=== PATIENT | female | born 1940 | race Caucasian/White ===

== ENCOUNTER 2021-07-05 11:19 | Emergency (ER) | payer MEDICARE, SELFPAY ==
--- NOTE | ~2021-07-05 | XR_ITS ---
XR shoulder RT min 2V, XR humerus RT 07/05/2021 12:32 Indication: Status post fall. Hematoma. Decreased range of motion. Procedure: 4 views right shoulder and 2 views right humerus Comparison: No prior studies for comparison. 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 Osteopenia. No acute fracture or traumatic malalignment. No focal soft tissue abnormality. Visualiz ed aspects of the right lung is unremarkable. Impression: 1: No acute fracture. Reviewed, dictated and finalized at location A. FARM OPERATIONS MANAGER Impression: 1: No acute fracture. Impression: 1: No acute fracture.
--- NOTE | ~2021-07-05 | XR_ITS ---
[id number] DATE: 07/05/2021 13:08 INDICATION: Fall. Upper anterior right rib pain TECHNIQUE: PA chest. 4 views of the right ribs. COMPARISON: None FINDINGS: Left dual-lead pacemaker device, with leads overlying right atrium and right ventricle. Status post right cholecystectomy; right upper abdomen fabian. There is diffuse osteopenia. No displaced right rib fracture is detected. Levoscoliosis and degenerative spurring of the thoracic and lumbar spine. There is osteoarthritic change of the right glenohumeral joint. There is chronic rotator cuff atrophy . No pulmonary infiltrate or consolidation, pleural effusion or pulmonary vascular congestion or pneumo thorax is evident. There is aortic atherosclerosis. IMPRESSION: No displaced right rib fractures noted Diffuse osteopenia No active pulmonary disease Reviewed, dictated and finalized at Location A. Reviewed, dictated and finalized at location B. CAL CLINIC MANAGER
[2021-07-05 11:24] VITALS: BP 154/64; PULSE 80; RESP 18; TEMP 36.1; O2SAT 98
--- NOTE | 2021-07-05 20:22 | ED.GENADULT ---
HPI - General Adult General Chief complaint: Extremity Injury, Upper Stated complaint: R. shoulder pain from fall. Time Seen by Provider: 07/05/21 12:23 Source: patient Mode of arrival: ambulatory Limitations: no limitations History of Present Illness HPI narrative: Patient presents with chief complaint of pain to the right shoulder when trying to do activities that cause her to supinate and pronate and gripping such as a cup. She reports shooting pains into that shoulder. Patient reports that she fell onto the shoulder 3 weeks ago. Patient states that she did not have any head injuries or other injuries. Patient reports she has bruising area. Patient states she has not had the shoulder evaluated. She reports that she injured the right shoulder many years ago. Related Data Home Medications Medication Instructions Recorded Confirmed cholecalciferol (vitamin D3) 10 10 mcg PO DAILY 12/27/19 04/08/21 mcg (400 unit) tablet vit C,E,zinc,copper-bfdjc7e 250 1 cap PO DAILY 10/09/20 04/08/21 mg-lutein 5 mg-zeaxanthin 1 mg capsule aspirin 81 mg tablet,delayed 81 mg PO DAILY 04/08/21 04/08/21 release amiodarone 07/05/21 clopidogrel 07/05/21 latanoprost drp 07/05/21 lisinopril 07/05/21 timolol maleate drp 07/05/21 Allergies Allergy/AdvReac Type Severity Reaction Status Date / Time morphine Allergy Unknown Vomiting Verified 04/08/21 12:09 Review of Systems Review of Systems: CONSTITUTIONAL: Denies fever, chills, or sweats. EYES: Denies visual changes, redness, or discharge. ENT: Denies rhinorrhea, congestion, sore throat, or otalgia. CARDIOVASCULAR: Denies chest pain, palpitations, or edema. RESPIRATORY: Denies cough or dyspnea. GASTROINTESTINAL: Denies abdominal pain, nausea, vomiting, or diarrhea. GENITOURINARY: Denies dysuria or hematuria. SKIN: Denies rash or itching. MUSCULOSKELETAL: Reports right shoulder pain denies back pain, joint pain, or myalgia. NEUROLOGIC: Denies headache, numbness, dizziness, or weakness. PSYCHIATRIC: Denies anxiety or depression. 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 Sleep apnea, obstructive Surgical History Surgical History AICD (automatic cardioverter/defibrillator) present History of appendectomy History of cholecystectomy History of partial hysterectomy Family History Family History Father Hypertension Family history of diabetes mellitus in first degree relative Family history of coronary artery disease Mother Family history of coronary artery disease, Onset Age: 68 Patient's mother is , Onset Age: 68 Other Family history of blood dyscrasia Family history of cardiovascular disease Social History Social History Second hand tobacco smoke exposure: No Alcohol intake: never Substance use: never Substance use type: does not use Gender identity (if verbalized by the patient): Female Exam Narrative: GENERAL: Well-appearing, well-nourished, and in no acute distress. HEAD: Normocephalic, atraumatic. EYES: PERRLA and EOMI. NECK: Supple. No adenopathy or masses. ROM intact CHEST: Clear to auscultation. No respiratory distress. No wheezes rales or rhonchi HEART: Regular rate and rhythm. EXTREMITIES: Right shoulder pain. 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 Shooting pain with right shoulder. Patient reports supination and pronation cause shooting pain and limits exam. Old Bruising noted to right upper arm. SKIN: Warm, dry, no rash. NEURO: No focal deficits. Alert and oriented x3. PSYCH: Normal mood and affect. Course Vital Signs V
== END 2021-07-05 14:15 | disposition home or self-care (01) ==
PROVIDERS: Emergency Provider Emergency Medicine; PCP Family Medicine
DX: M25.511 Pain in right shoulder (principal); I48.0 Paroxysmal atrial fibrillation; G47.33 Obstructive sleep apnea (adult) (pediatric); I34.0 Nonrheumatic mitral (valve) insufficiency; Z95.810 Presence of automatic (implantable) cardiac defibrillator; M85.88 Other specified disorders of bone density and structure, other site; Z79.82 Long term (current) use of aspirin
CPT/HCPCS: 71101; 73030; 73060; 99284; A4565

== ENCOUNTER 2023-12-05 10:15 | Outpatient (CLI) | payer MEDICARE, SELFPAY ==
--- NOTE | ~2023-12-05 | DEXA_ITS ---
Bone Density Report Name: TRACE HO Age: 83 Sex: Female Ethnicity: White Date of : 1940 Indication: postmenopausal; screening for osteoporosis; height loss; prior fracture; hysterectomy; rheumatoid arthritis; Referring Provider: CHETAN BAHENA Study: Bone densitometry was performed. Exam Date: December 05, 2023 Accession number: [id number] Bone Density: Region BMD T-score Z-score Classification AP Spine(L1-L4) 0.869 -1.6 1.2 Osteopenia World Health Organization criteria for BMD impression classify patients as: Normal (T-score at or above -1.0), Osteopenia (T-score between -1.0 and -2.5), or Osteoporosis (T-score at or below -2.5). Clinical Information Provided by Patient: Have had a previous hip or vertebral fracture Has had a low trauma fracture Has rheumatoid arthritis Has the following medical conditions: Hysterectomy Patient maximum height was 65.8 Menopause Age: 46 Drinks caffeinated beverages Onset of menses at age 11 Number of children 5 Impression: The patient has low bone mass, based on the Total Spine T-score. The patient has risk factors, including: previous fracture. Discussion: INCREASED RISK OF FRACTURE DUE TO HISTORY OF FRACTURE. The patient's previous fracture puts the patient at high risk of a future fracture. In untreated patients, the risk of osteoporotic fracture increases approximately two-fold for each 1.0 SD decrease in T-score. Low bone density is not the only risk factor for fracture; also consider factors such as patient's age, frailty or poor health, risk of falling, risk of injury, previous osteoporotic fracture, family history of osteoporosis, cigarette smoking, low body weight, etc. Not everyone with a low trauma fracture has osteoporosis; osteomalacia and other metabolic bone disorders should also be considered. Patients who have osteoporosis should be evaluated for specific diseases and conditions (secondary causes) that may cause or contribute to bone loss and fracture risk. National Osteoporosis Foundation (NOF) recommends pharmacologic intervention for patients with a prior hip or vertebral fracture regardless of BMD T-score. The patient should follow a healthful lifestyle (good nutrition with adequate calcium and vitamin D, and appropriate weight-bearing exercise). Follow-Up: Consider a repeat BMD and Vertebral Fracture Assessment (VFA) exam in 2 years or sooner if medically necessary, to reassess this patient's status. Reported by: MILA on 12/05/2023 10:44:00 AM. Reviewed, dictated and finalized at location Nirmal CONLEY
== END 2023-12-05 10:16 | disposition home or self-care (01) ==
PROVIDERS: PCP Family Medicine; Visit Provider Family Medicine
DX: Z78.0 Asymptomatic menopausal state (principal); M85.88 Other specified disorders of bone density and structure, other site
CPT/HCPCS: 77080

== ENCOUNTER 2024-04-23 10:53 | Outpatient (CLI) | payer MEDICARE, SELFPAY ==
--- NOTE | ~2024-04-23 | XR_ITS ---
Clinical Indication: Cough PA and lateral views of the chest: Comparison: 03/06/2006 Findings: The lungs are clear, without evidence of focal consolidation or pleural effusion. Cardiome diastinal silhouette is stable, now with pacemaker device. L1 compression fracture noted. Impression: Clear lungs. Possible COPD. L1 compression fracture. Pacemaker device. Reviewed, dictated and finalized at location . Impression: Clear lungs. Possible COPD. L1 compression fracture. Pacemaker device.
== END 2024-04-23 10:54 | disposition home or self-care (01) ==
PROVIDERS: PCP Family Medicine; Visit Provider Family Medicine
DX: R05.9 Cough, unspecified (principal); Z95.0 Presence of cardiac pacemaker; S32.010A Wedge compression fracture of first lumbar vertebra, initial encounter for closed fracture; X58.XXXA Exposure to other specified factors, initial encounter
CPT/HCPCS: 71046

== ENCOUNTER 2025-02-07 17:07 | Emergency (ER) | payer MEDICARE, SELFPAY ==
--- NOTE | ~2025-02-07 | CT_ITS ---
EXAMINATION: 1. CT facial & cervical spine wo DATE: 02/07/2025 17:52 INDICATION: Facial injury post fall TECHNIQUE: 1. Computed tomography (CT) of the maxillofacial region and of the cervical spine were performed with out intravenous contrast. Sagittal and coronal reconstructions of both regions were obtained. Automat ed exposure control and iterative reconstruction technique were employed. The dose-length product was 482.72. mGy-cm. COMPARISON: None. FINDINGS: Maxillofacial CT: No maxillofacial fractures. Specifically the mandible, nasal bones, zygomatic arches and caraballo of the orbits and paranasal sinuses are all intact. Changes of bilateral intraocular lens replacement. Orbi ts are otherwise normal. Mastoid air cells and middle ear cavities are clear. Mild scattered mucoperi osteal thickening the paranasal sinuses. Dystrophic calcification of the anteriorly displaced disc an d mild osteoarthritis at the left temporomandibular joint. Soft tissues are unremarkable. Cervical spine CT: Severe osteoarthritis at the atlantoaxial articulation. 25 degrees cervical dextroscoliosis. Straight ening of the normal cervical lordosis. There is C2-C4 posterior spinal fusion including cerclage wire s extending around the C3 and C4 spinous processes. There is developing anterior fusion along the mar gins of the moderately narrowed C2-C3 and C3-C4 disc spaces. Severe disc height loss with severe bila teral uncovertebral osteoarthritis at C5-C6 and moderate disc height loss at C6-C7 and mild disc heig ht loss at C4-C5 and C7-T1. There is mild to moderate uncovertebral osteoarthritis at the remaining l evels between C4-C5 and C7-T1. There is additional multilevel mild to moderate disc height loss at th e visualized upper thoracic spine. Posterior endplate osteophytes contribute to mild central canal st enosis at C5-C6 and C6-C7. Severe left-sided and mild to moderate right-sided facet osteoarthritis fr om C4-C5 through C7-T1. Mild to moderate neural foraminal stenosis bilaterally at C5-C6 with mild marichuy ral from stenosis at many of the remaining bilateral cervical neural foramina. Atherosclerotic calcif ication is at the bilateral carotid bulbs. Small left occipital scalp contusion. Cervical soft tissue s are otherwise unremarkable. Mild biapical pleural-parenchymal scarring. A pair of cardiac pacemaker leads extend across the left brachiocephalic vein and beyond the inferior margin of the ileqh-xj-olt w. IMPRESSION: 1. Severe cervical spondylosis with anterior and posterior fusion at C2-C4. No acute osseous abnormal ity. 2. No maxillofacial fractures. Reviewed, dictated and finalized at location A. IMPRESSION: 1. Severe cervical spondylosis with anterior and posterior fusion at C2-C4. No acute osseous abnormality. 2. No maxillofacial fractures.
--- NOTE | ~2025-02-07 | CT_ITS ---
EXAMINATION: CT brain wo con DATE: 02/07/2025 17:52 INDICATION: Fall with head injury TECHNIQUE: Computed tomography (CT) of the head was performed without intravenous contrast. Sagittal and coronal reconstructions were performed. The mA was adjusted according to patient size. Iterative reconstruction technique was employed. The dose-length product was 605.33 mGy-cm. COMPARISON: Brain MR dated 10/28/2008 FINDINGS: Small left occipital scalp hematoma. No fracture. No acute intracranial hemorrhage, acute infarction or abnormal extra axial fluid collection. Small old lacunar infarct at the right subinsular white mat ter. There is moderate scattered white matter hypoattenuation consistent with chronic small vessel is chemic disease. Symmetric prominence of the sulci consistent with mild age-appropriate diffuse cerebr al volume loss. Ventricles are normal and symmetric.. There are couple small calcified extra-axial ma sses the larger measuring 9 x 5 mm overlying the left frontoparietal region and the smaller measuring 4.3 overlying the anterior left frontal lobe consistent with meningiomas. Changes of bilateral intra ocular lens replacement. The orbits, paranasal sinuses and mastoid air cells are normal. IMPRESSION: 1. Aging brain. No fracture or acute intracranial process. 2. A couple small partially calcified extra-axial mass overlying the left frontal and left frontopari etal regions consistent with small meningiomas. Reviewed, dictated and finalized at location A. IMPRESSION: 1. Aging brain. No fracture or acute intracranial process. 2. A couple small partially calcified extra-axial mass overlying the left front al and left frontoparietal regions consistent with small meningiomas.
--- OUTSIDE RECORDS SUMMARY | 2025-02-07 17:09 | XMS_ITS | Referral Summary ---
Author Organization [facility] al Address [address] [place] [address] Care Team Providers Care Power Brake Rebuilder Name Role Phone Deena Abernathy MD Primary Care Provider [phone] Serafin Chacon MD Unavailable Duglas Valiente MD Unavailable [phone] Bong Jolly MD Unavailable Alaina Godinez MD, Tonny P. Unavailable [phone] Allergies Active Allergy Reactions Criticality Noted Date Comments Morphine Nausea & Vomiting Low Medications amiodarone (PACERONE) 200 mg tablet Take 1 tablet (200 mg total) by mouth daily Active latanoprost (XALATAN) 0.005 % ophthalmic solution 09/10/19 21 Active lisinopriL (PRINIVIL,ZESTRIL) 5 mg tablet Take 1 tablet (5 mg total) by mouth daily 09/10/19 21 Active timolol (TIMOPTIC) 0.5 % ophthalmic solution 12/16/19 21 Active lutein-zeaxanthin 25-5 mg capsule Take by mouth Active aspirin 81 mg enteric coated tablet Take 1 tablet (81 mg total) by mouth daily Active acetaminophen (TYLENOL) 325 mg tablet Take 2 tablets (650 mg total) by mouth every 6 (six) hours as needed for pain (1 tablet for mild to moderate pain. 2 tablets for severe pain) 50 tablet 05/09/20 23 Active Additional Information Patient not taking.Reported on 06/26/2024 docusate sodium (COLACE) 100 mg capsuleIndications :constipation Take 1 capsule (100 mg total) by mouth every 12 (twelve) hours 30 capsule 05/09/20 Active Additional Information Patient not taking.Reported on 06/26/2024 ondansetron ODT (ZOFRAN-ODT) 4 mg disintegrating tablet Take 1 tablet (4 mg total) by mouth every 8 (eight) hours as needed for nausea or vomiting 20 tablet 05/09/20 23 Active Additional Information Patient not taking.Reported on 12/04/2023 LORazepam (ATIVAN) 0.5 mg tablet Take 1 tablet (0.5 mg total) by mouth every 6 (six) hours as needed for anxiety Active vit C,P-Mt-nsevy-lutei n-zeaxan 250-90-40-1 mg capsule Take by mouth Active Active Problems Problem Noted Date Diagnosed Date Mitral regurgitation 11/29/2022 TBI (traumatic brain injury) 01/27/2020 Dizziness and giddiness 01/27/2020 Subdural hematoma 12/04/2019 Fracture of base of skull 12/04/2019 Syncope 12/04/2019 Longstanding persistent atrial fibrillation 11/15 Assessment & Plan (12/18/2020 2:27 PM CDT): History of atrial fibrillation, currently suppressed with amiodarone. To my knowledge to has been no recent documentation of atrial fibrillation, but it is likely to recur, particularly given her mitral valve disease. She is a suitable candidate for a Watchman device who given her chads Vasc and has bled scores, and she is likely to tolerate anticoagulation for at least six weeks. The procedure, its purpose, indications, and risks, the need for anti-platelet therapy following approximately six weeks of anticoagulation was all discussed with her including the need for general anesthesia for the procedure and likely an overnight stay in the hospital. All questions were answered. She is interested in proceeding. She understands that she has the separate issue of mitral insufficiency for which she is to see Dr. Zamora. 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 03/30/2019 History of deep venous thrombosis 12/28/2016 Atrial arrhythmia 08/02/2016 Obstructive sleep apnea (adult) (pediatric) 01/2016 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 Nonrheumatic mitral valve regurgitation 12/01/19 14 Overview (10/19/2016): MITRAL REGURGITATION Hypertension 11/30/2013 Overview (10/19/2016): HYPERTENSION NOS Temporary cerebral vascular dysfunction 12/01/19 14 Overview (10/21/2016): TIA Resolved Problems Problem Noted Date Diagnosed Date Resolved Date Acute pain due to trauma 12/04/2019 Immunizations Immunization Administration Dates Next Due Hep A, Adult 10/16/2012 Influenza, Trivalent, IM (MDV) 03/30/2014 Pneumococcal Conjugate PCV 13 08/26/2016, 016 Tdap 01/09/2013 Social History Tobacco Use Types Packs/Day Years Used Date Smoking Tobacco: Never Smokeless Tobacco: Never Alcohol Use Standard Drinks/Week Comments No 0 (1 standard drink = 0.6 oz pur e alcohol) Social Connection and Isolat ion Panel [NHANES] Answer Date Recorded In a typical week, how many times do you talk on the phone with family, friends, or neighbors? More than three times a week 11/30/2022 How often do you get togethe r with friends or relatives? More than three times a week 11/30/2022 How often do you attend chur ch or samaritan services? More than 4 times per year 11/30/2022 Do you belong to any clubs o r organizations such as voodoo groups, unions, fraternal or athletic groups, or school groups? No 11/30/2022 How often do you attend meet ings of the clubs or organizations you belong to? Never 11/30/2022 Are you , , di vorced, , never , or living with a partner? 11/30/2022 AUDIT-C Answer Date Recorded Q1: How often do you have a drink containing alcohol? Never 11/29/2022 Q2: How many drinks containi ng alcohol do you have on a typical day when you are drinking? Patient does not drink 3 Q3: How often do you have si x or more drinks on one occasion? Never 11/29/2022 Overall Financial Resource Strain (CARDIA) Answe r Date Recorded How hard is it for you to pa y for the very basics like food, housing, medical care, and heating? Not very hard 11/30/2022 [facility] Occupat ional Health - Occupational Stress Questionnaire Answer Date Recorded Do you feel stress - tense, restless, nervous, or anxious, or unable to sleep at night because your mind is troubled all the time - these days? Patient declined 12/02/2019 Exercise Vital Sign Answer Date Recorde d On average, how many days pe r week do you engage in moderate to strenuous exercise (like a brisk walk)? 6 days 12/02/2019 On average, how many minutes do you engage in exercise at this level? 40 min 12/02/2019 Hunger Vital Sign Answer Date Recorded Within the past 12 months, y ou worried that your food would run out before you got the money to buy more. Never true 12/02/19 20 Within the past 12 months, t he food you bought just didn't last and you didn't have money to get more. Never true 12/02/2019 PRAPARE - Transportation Answer Date Re corded In the past 12 months, has l ack of transportation kept you from medical appointments or from getting medications? No 11/14 In the past 12 months, has l ack of transportation kept you from meetings, work, or from getting things needed for daily living? No 11/30/2022 Personal Safety Answer Date Recorded Have you ever been in or are you currently in a harmful physical or emotional relationship or is someone making you feel afraid or unsafe? Denies 05/09/2023 Education Answer Date Recorded What is the highest level of school you have completed or the highest degree you have received? Some college, no degree 12/02/2019 Comments No Sex and Gender Information Value Date Recorded Sex Assigned at Not on file Legal Sex Female 12:27 AM TRACTOR TECHNICIAN Gender Identity Not on file Sexual Orientation Not on file Last Filed Vital Signs Vital Sign Reading Time Taken Comments Blood Pressure 127/78 06/26/2024 3:22 PM TRACTOR TECHNICIAN Pulse 71 06/26/2024 3:22 PM TRACTOR TECHNICIAN Temperature 36.6 C (97.8 F) 06/26/2024 3:22 PM TRACTOR TECHNICIAN Respiratory Rate 20 06/26/2024 3:22 PM TRACTOR TECHNICIAN Oxygen Saturation 96% 06/26/2024 3:22 PM TRACTOR TECHNICIAN Inhaled Oxygen Concentration - - Weight 78.5 kg (173 lb) 06/26/2024 3:22 PM TRACTOR TECHNICIAN Height 172.7 cm (5' 7.99) 06/26/2024 3:22 PM CS T Body Mass Index 26.31 06/26/2024 3:22 PM TRACTOR TECHNICIAN Plan of Treatment Not on file Medical Devices Implanted Type Area Metal Drill Operator Device Identifier Shelf Expiration Date Model / Serial / Lot [employer] Mitraclip G4 Xtw Cardiac Valve Clip [id number] - S0 - [id number] Implanted:Qty: 1 on 11/29/2022 by Bong Jolly MD at [facility] Clip [employer] 08/07/2023 [id number] / 0 / [id number] [employer] Mitraclip Implant G4 System [id number] - S0 - [id number] Implanted:Qty: 1 on 11/29/2022 by Bong Jolly MD at [facility] Clip [employer] 05/16/2023 [id number] / 0 / [id number] [employer] Device Clsr Perclose Prostyle Sut-Mediatd Closure-Repair Sys 12549-16 - S0 - [id number] Implanted:Qty: 1 on 11/29/2022 by Bong Jolly MD at [facility] Vascular Closure Device Right: Femoral [employer] 08/16/2024 [id number] / 0 / [id number] [employer] Device Clsr Perclose Prostyle Sut-Mediatd Closure-Repair Sys 03592-68 - S0 - [id number] Implanted:Qty: 1 on 11/29/2022 by Bong Jolly MD at [facility] Vascular Closure Device Right: Femoral [employer] 08/16/2024 [id number] / 0 / [id number] [employer] 1600-445ns Marcia .045in 4in 2 [place] Smooth Wire Fixation - [id number] Implanted:Qty: 4 on 12/06/2019 by Serafin Chacon MD at [facility] [employer] [id number] / / [employer] Treva Wmflxperproc Watchman Flx Procedure Device - [id number] - [id number] Implanted:Qty: 1 on 01/21/2021 by Bong Jolly MD at [facility] [employer] 07/22/2023 [id number] / [id number] / [employer] [id number] System 6-12fr Mvp Venous Closure Vascade - [id number] - [id number] Implanted:Qty: 1 on 01/21/2021 by Bong Jolly MD at [facility] N/A: Groin [employer] 11/18/2022 [id number] / [id number] / [id number] [employer] Violetta Clip G4 Nt Cardiac Valve Clip [id number] - S0 - [id number] Implanted:Qty: 1 on 11/29/2022 by Bong Jolly MD at [facility] [employer] 08/26/2023 [id number] / 0 / [id number] Explanted Type Area Metal Drill Operator Device Identifier Shelf Expiration Date Model / Serial / Lot [employer] 1600-445ns Marcia .045in 4in 2 [place] Smooth Wire Fixation - [id number] Explanted:Qty: 1 on 12/06/2019 at [facility] [employer] [id number] / / Insurance AETNA MEDICARE [facility] MEDIC[facility] Address: [facility] [id number] [place] [address] [facility] MEDICARE [facility] MEDICARE ADVANTAGE AETNA MEDICARE Advance Directives For more information, please contact: [phone] * Full Code (Latest Code Status on File) Date Activated Date Inactivated Comments 11/29/2022 2:55 PM 11/30/2022 6:21 PM * Full Code Date Activated Date Inactivated Comments 01/21/2021 1:56 PM 01/22/2021 12:01 AM * Full Code Date Activated Date Inactivated Comments 12/02/2019 5:15 AM 12/06/2019 8:53 PM Care Teams Power Brake Rebuilder Relationship Specialty Start Date End Date Deena Abernathy MD PCP - General 02/27/07 Serafin Chacon MD [address] [place] [address] Consulting Physician Plastic Surgery 12/06/19 Duglas Valiente MD [address] [place] [address] Referring Physician Neurosurgery 12/06/19 Bong Jolly MD [address] [place] [address] Referring Physician Cardiovascular Disease 12/22/20 Tonny Foley Jr., MD [address] [place] [address] Consulting Physician Cardiovascular Disease 01/11/22
--- OUTSIDE RECORDS SUMMARY | 2025-02-07 17:09 | XMS_ITS | Continuity of Care Document ---
Author Organization [facility] Address [address] [place], [place] [address] Phone Care Team Providers Care Data Entry Email Processor Name Role Phone Alaina HAY FACC, FSCAI, Rafiq Unavailable U navailable Alaina HAY FACC, FSCAI, Rafiq Unavailable U navailable Procedures Procedure Date ICD DEVICE INTERROGAT REMOTE PM/ICD REMOTE TECH SERV ICM DEVICE INTERROGAT REMOTE Advance Directives Directive Yes / No Effective Date File Name No Information Encounters Encounter Description Practice Location Reason(s) For Visit Diagnoses Date Provider Providers Copied on Encounter [facility] , [address] [place] [address], [id number], tel:[phone] [facility] [place] Presence of automatic (implantable) cardiac defibrillator Alaina Gurrolaiq. [address] [place], [place] [address]Nikita [place], [place], [id number], [place]. tel:[phone] Referring Provider: Tonny Foley [facility] [place], [address] . tel:[phone] sulting Provider: Tonny Foley [facility] [place], [address] . tel:[phone] [facility] , [address] [place] [address], [id number] [place] [address] tel:[phone] [facility] [place] Presence of automatic (implantable) cardiac defibrillator Ramadaakin Gurrolaiq. [address] [place], [place] [address]Nik[place], [id number], . tel:[phone] Referring Provider: Tonny Foley, [address], [place], [address] . tel:[phone] sulting Provider: Tonny Foley, [address], [place], [address] . tel:[phone] Family History Family Member Type Diagnosis Age At Onset No Information Payers Payer name Insurance type Covered constitution party ID Authoriza tion(s) AETNA MEDICARE ESA PPO [id number] Social History Type Description Quantity Date Captured Comments Sex Female Smoking Status No Information Chief Complaint And Reason For Visit No Information Reason For Referral Reason For Referral No Information Plan Of Treatment Date Type Action Status Appointment Jenifer De Luna History Of Present Illness Encounter Date Complaint History Of Prese nt Illness No Information Functional Status Date Functional Assessmen t No Information Instructions Date Instruction Additional Infor mation No Information Assessments Type Assessment Date No Information Patient Care Teams Name Effective Dates (start - stop) Status Members No Information
--- OUTSIDE RECORDS SUMMARY | 2025-02-07 17:09 | XMS_ITS | Encounter Summary ---
Author Organization [facility] Healthcare Address [address] [place] [address] Care Team Providers Care Singer Back Tender Name Role Phone Deena Abernathy MD Primary Care Provider [phone] Serafin Chacon MD Unavailable Duglas Valiente MD Unavailable [phone] Bong Jolly MD Unavailable Alaina Godinez MD, Tonny Rodriguez Unavailable [phone] Encounter Details Date Type Department Care Team (Late st Contact Info) Description 12/02/2020 Telephone [facility] - Imaging [address] [place] [address] Transcribed Order, Provider Social History Tobacco Use Types Packs/Day Years [...] neighbors? More than three times a week 12/02/2019 How often do you get togethe r with friends or relatives? More than three times a week 12/02/2019 How often do you attend chur ch or amish services? More than 4 times per year 12/02/2019 Do you belong to any clubs o r organizations such as holiness groups, unions, fraternal or athletic groups, or school groups? No 12/02/2019 How often do you attend meet ings of the clubs or organizations you belong to? Never 12/02/2019 Are you , , di vorced, , never , or living with a partner? 12/02/2019 Overall Financial Resource Strain (CARDIA) Answe r Date Recorded How hard is it for you to pa y for the very basics like food, housing, medical care, and heating? Not hard at all 12/02/2019 [facility] [place] of Occupat ional [facility] - Occupational Stress Questionnaire Answer Date Recorded [...] getting things needed for daily living? No 12/02/2019 Education Answer Date Recorded What is the highest level of school you have completed or the highest degree you have received? 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 Gender Identity Not on file Sexual Orientation Not on file documented as of this encounter Plan of Treatment Not on file documented as of this encounter Visit Diagnoses Not on filedocumented in this encounter Care Teams Singer Back Tender Relationship Specialty Start Date End Date Deena Abernathy MD PCP - General 02/27/07 Serafin Chacon MD [address] [place] [address] Consulting Physician Plastic Surgery 12/06/19 Duglas Valiente MD [address] [place] [address] Referring Physician Neurosurgery 12/06/19 Bong Jolly MD [address] [place] [address] Referring Physician Cardiovascular Disease 12/22/20 Tonny Foley Jr., MD [address] [place] [address] Consulting Physician Cardiovascular Disease 01/11/22 documented as of this encounter
--- OUTSIDE RECORDS SUMMARY | 2025-02-07 17:09 | XMS_ITS | Clinical Summary ---
Author Organization [facility] al Address [address] [place] [address] Care Team Providers Care Emissions Testing And Repair Technician Name Role Phone Deena Abernathy MD Primary Care Provider [phone] Serafin Chacon MD Unavailable Duglas Valiente MD Unavailable [phone] Bong Jolly MD Unavailable Alaina Godinez MD, Tonny P. 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 [...] Conjugate PCV 13 08/26/2016, 016 Tdap 01/09/2013 Surgical History Surgery Date Site/Laterality Comments [place] APPENDECTOMY TOTAL HIP ARTHROPLASTY 2014; 08/2015 Bilateral 2014 (R); 2016 (L) HYSTERECTOMY SPINAL FUSION BLADDER SUSPENSION CARDIAC DEFIBRILLATOR PLACEMENT 10/15/2014 - 11/13/2014 biotronik AICD for WCT & syncope CHOLECYSTECTOMY TUBAL LIGATION Medical History Medical History Date Comments Varicose veins of both lower extremities Bleeding from varicose veins of lower extremity, right Wide-complex tachycardia 2014 present ed with syncope, now s/p AICD SDH (subdural hematoma) ([facility]) 12/01/2019 chang ffered following fall down 12 steps- unclear if she had syncopal episode that resulted in or if it was LOC d/t head trauma- no discharge from AICD Fracture of skull base ([facility]) 12/01/2019 laura varial/skull base fx, no evidence of carotid artery injury - NSGY following Atrial fibrillation ([facility]) amio & Eliquis- [facility] cards Mitral valve prolapse Family History Medical History Relation Name Comments Heart failure Father Heart disease Mother Anesthesia problems Neg Hx Relation Name Status Comments Father Mother Social History Tobacco Use Types Packs/Day Years [...] 11/30/2022 How often do you attend chur or caodaism services? More than 4 times per year 11/30/2022 Do you belong to any clubs o r organizations such as denominational groups, unions, fraternal or athletic groups, or [...] you are drinking? Patient does not drink Q3: How often do you have si x or more drinks on one occasion? Never 11/29/2022 Overall Financial Resource Strain (CARDIA) Answe r Date Recorded How hard is it for you to pa y for the very basics like food, housing, medical care, and heating? Not very hard 11/30/2022 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 Gender Identity Not on file Sexual Orientation Not on file Obstetrics History Last Filed Vital Signs Vital Sign Reading Time Taken Comments Blood Pressure 127/78 06/26/2024 3:22 PM PATHOLOGY TRANSCRIPTIONIST Pulse 71 06/26/2024 3:22 PM PATHOLOGY TRANSCRIPTIONIST Temperature 36.6 C (97.8 F) 06/26/2024 3:22 PM PATHOLOGY TRANSCRIPTIONIST Respiratory Rate 20 06/26/2024 3:22 PM PATHOLOGY TRANSCRIPTIONIST Oxygen Saturation 96% 06/26/2024 3:22 PM PATHOLOGY TRANSCRIPTIONIST Inhaled Oxygen Concentration - - Weight 78.5 kg (173 lb) 06/26/2024 3:22 PM PATHOLOGY TRANSCRIPTIONIST Height 172.7 cm (5' 7.99) 06/26/2024 3:22 PM CS T Body Mass Index 26.31 06/26/2024 3:22 PM PATHOLOGY TRANSCRIPTIONIST Plan of Treatment Health Maintenance Due Date Last Done Comments Depression Screening 1940 Osteoporosis Screening-Bone Density Scan 1940 Hepatitis B Screening 09/18/1957 Zoster Vaccine (1 of 2) 09/18/1989 Well Visit 65+ 09/18/2004 Pneumococcal vaccine 65+ (2 of 2 - PPSV23) 08/26/2017 08/26/2016, 07/23/2015 DTaP/Tdap/Td Vaccine (2 - Td or Tdap) 01/09/2023 Fall Risk Assessment 12/01/2023 11/30/2022 Influenza Vaccine (#1) 2025 03/30/2014 Medical Devices Implanted Type Area Drying Machine Back Tender Device Identifier Shelf Expiration Date Model / Serial / Lot Ch[employer]vez Vascular Mitraclip G4 Xtw Cardiac Valve Clip [id number] - S0 - [id number] Implanted:Qty: 1 on 11/29/2022 by Bong Jolly MD at [facility] Clip [employer] 08/07/2023 [id number] / 0 / [id number] Ch[employer]vez [employer] Mitraclip Implant G4 System [id number] - S0 - [id number] Implanted:Qty: 1 on 11/29/2022 by Bong Jolly MD at [facility] Clip [employer] 05/16/2023 [id number] / 0 / [id number] Ch[employer]vez Vascular Device Clsr Perclose Prostyle Sut-Mediatd Closure-Repair Sys 68099-95 - S0 - [id number] Implanted:Qty: 1 on 11/29/2022 by Bong Jolly MD at [facility] Vascular Closure Device Right: Femoral [employer] 08/16/2024 [id number] / 0 / [id number] Chv[employer]ez Vascular Device Clsr Perclose Prostyle Sut-Mediatd Closure-Repair Sys 02644-07 - S0 - [id number] Implanted:Qty: 1 on 11/29/2022 by Bong Jolly MD at [facility] Vascular Closure Device Right: Femoral Ch[employer] 08/16/2024 [id number] / 0 / [id number] [employer] 1600-445ns Marcia .045in 4in 2 [place] Smooth Wire Fixation - [id number] Implanted:Qty: 4 on 12/06/2019 by Serafin Chacon MD at [facility] [employer] 1600-445NS / / [employer] Treva Wmflxperproc Watchman Flx Procedure Device - [id number] - [id number] Implanted:Qty: 1 on 01/21/2021 by Bong Jolly MD at [facility] [employer] Treva 07/22/2023 [id number] / [id number] / [employer] [id number]-55a System 6-12fr Mvp Venous Closure Vascade - [id number] - [id number] Implanted:Qty: 1 on 01/21/2021 by Bong Jolly MD at [facility] N/A: Groin [employer] 11/18/2022 [id number] / [id number] / [id number] Ch[employer] Violetta Clip G4 Nt Cardiac Valve Clip [id number] - S0 - [id number] Implanted:Qty: 1 on 11/29/2022 by Bong Jolly MD at [facility] [employer] 08/26/2023 [id number] / 0 / [id number] Explanted Type Area Drying Machine Back Tender Device Identifier Shelf Expiration Date Model / Serial / Lot [employer] 1600-445ns Marcia .045in 4in 2 [place] Smooth Wire Fixation - [id number] Explanted:Qty: 1 on 12/06/2019 at [facility] [employer] 1600-445NS / / Insurance AETNA MEDICARE [facility] MEDICARE [facility]ICARE Address[facility] [id number] [place] [address] [place] [address] MEDICARE [facility] MEDIC[facility] Address: [address] [place] [address] Advance Directives For more information, please contact: [phone] * Full Code (Latest Code Status on File) Date Activated Date Inactivated Comments 11/29/2022 2:55 PM 11/30/2022 6:21 PM * Full Code Date Activated Date Inactivated Comments 01/21/2021 1:56 PM 01/22/2021 12:01 AM * Full Code Date Activated Date Inactivated Comments 12/02/2019 5:15 AM 12/06/2019 8:53 PM Care Teams Emissions Testing And Repair Technician Relationship Specialty Start Date End Date Deena Abernathy MD PCP - General 02/27/07 Serafin Chacon MD [address] [place] [address] Consulting Physician Plastic Surgery 12/06/19 Duglas Valiente MD [address] [place] [address] Referring Physician Neurosurgery 12/06/19 Bong Jolly MD [address] [place] [address] Referring Physician Cardiovascular Disease 12/22/20 Tonny Foley Jr., MD [address] [place] [address] Consulting Physician Cardiovascular Disease 01/11/22
[2025-02-07 17:18] VITALS: BP 152/80; PULSE 75; RESP 17; TEMP 36.9; O2SAT 96
[2025-02-07 20:32] VITALS: BP 149/86; PULSE 69; RESP 16; O2SAT 96
--- OUTSIDE RECORDS SUMMARY | 2025-02-07 20:56 | XMS_ITS | Encounter Summary ---
Author Organization [facility] Healthcare Address [address] [place] [address] Care Team Providers Care Ammunition Storage Superintendent Name Role Phone Deena Abernathy MD Primary Care Provider [phone] Serafin Chacon MD Unavailable Duglas Valiente MD Unavailable [phone] Bong Jolly MD Unavailable Alaina Godinez MD, Tonny Rodriguez Unavailable [phone] Encounter Details Date Type Department Care Team (Late st Contact Info) Description 12/02/2020 Telephone [facility] - Imaging [address] [place] [address] Transcribed Order, Provider Social History [...] often do you attend chur ch or jehovah's witness services? More than 4 times per year 12/02/2019 Do you belong to any clubs o r organizations such as religion groups, unions, fraternal or athletic groups, or [...] and heating? 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 Gender Identity Not on file Sexual Orientation Not on file documented as of this encounter Plan of Treatment Not on file documented as of this encounter Visit Diagnoses Not on filedocumented in this encounter Care Teams Ammunition Storage Superintendent Relationship Specialty Start Date End Date Deena Abernathy MD PCP - General 02/27/07 Serafin Chacon MD [address] [place] [address] Consulting Physician Plastic Surgery 12/06/19 Duglas Valiente MD [address] [place] [address] Referring Physician Neurosurgery 12/06/19 Bong Jolly MD [address] [place] [address] Referring Physician Cardiovascular Disease 12/22/20 Tonny Foley Jr., MD [address] [place] [address] Consulting Physician Cardiovascular Disease 01/11/22 documented as of this encounter
--- OUTSIDE RECORDS SUMMARY | 2025-02-07 20:56 | XMS_ITS | Clinical Summary ---
Author Organization [facility] al Address [address] [place] [address] Care Team Providers Care X Ray Electronics Wiring Technician Name Role Phone Deena Abernathy MD Primary Care Provider Serafin Chacon MD Unavailable Duglas Valiente MD Unavailable [phone] Bong Jolly MD Unavailable Alaina Godinez MD, Tonny P. Unavailable [phone] Allergies Active Allergy Reactions Criticality Noted Date [...] hours as needed for anxiety Active vit C,W-Ay-dkhtk-lutei n-zeaxan 250-90-40-1 mg capsule Take by mouth [...] (12/03/2019): Added automatically from request for surgery [id number] Chronic venous hypertension (idiopathic) without complications of [...] 01/09/2013 Surgical History Surgery Date Site/Laterality Comments [place] APPENDECTOMY TOTAL HIP ARTHROPLASTY 2014; 08/2015 Bilateral [...] syncope, now s/p AICD SDH (subdural hematoma) ([facility]) 12/01/2019 chang ffered following fall down 12 steps- unclear if she had syncopal episode that resulted in or if it was LOC d/t head trauma- no discharge from AICD Fracture of skull base ([facility]) 12/01/2019 laura varial/skull base fx, no evidence of carotid artery injury - NSGY following Atrial fibrillation ([facility]) amio & Eliquis- [facility] cards Mitral valve prolapse Family History Medical [...] How often do you attend chur or hindu services? More than 4 times per year 11/30/2022 Do you belong to any clubs o r organizations such as yarsanism groups, unions, fraternal or athletic groups, or [...] care, and heating? Not very hard 11/30/2022 [facility] of Occupat ional Health - Occupational Stress [...] on file Legal Sex Female 12:27 AM HEEL COVERER Gender Identity Not on file Sexual Orientation Not on file Obstetrics History Last Filed Vital Signs Vital Sign Reading Time Taken Comments Blood Pressure 127/78 06/26/2024 3:22 PM HEEL COVERER Pulse 71 06/26/2024 3:22 PM HEEL COVERER Temperature 36.6 C (97.8 F) 06/26/2024 3:22 PM HEEL COVERER Respiratory Rate 20 06/26/2024 3:22 PM HEEL COVERER Oxygen Saturation 96% 06/26/2024 3:22 PM HEEL COVERER Inhaled Oxygen Concentration - - Weight 78.5 kg (173 lb) 06/26/2024 3:22 PM HEEL COVERER Height 172.7 cm (5' 7.99) 06/26/2024 3:22 PM CS T Body Mass Index 26.31 06/26/2024 3:22 PM HEEL COVERER Plan of Treatment Health Maintenance Due Date [...] 2025 03/30/2014 Medical Devices Implanted Type Area Apricot Washer Device Identifier Shelf Expiration Date Model / Serial / Lot Chávez Vascular Mitraclip G4 Xtw Cardiac Valve Clip [id number] - S0 - [id number] Implanted:Qty: 1 on 11/29/2022 by Bong Jolly MD at [facility] Clip [employer] 08/07/2023 [id number] / 0 / [id number] Ch[employer] Mitraclip Implant G4 System [id number] - S0 - [id number] Implanted:Qty: 1 on 11/29/2022 by Bong Jolly MD at [facility] Clip [employer] 05/16/2023 [id number] / 0 / [id number] Ch[employer]vez Vascular Device Clsr Perclose Prostyle Sut-Mediatd Closure-Repair Sys 70811-09 - S0 - [id number] Implanted:Qty: 1 on 11/29/2022 by Bong Jolly MD at [facility] Vascular Closure Device Right: Femoral [employer] 08/16/2024 [id number] / 0 / [id number] Chávez Vascular Device Clsr Perclose Prostyle Sut-Mediatd Closure-Repair Sys 11506-40 - S0 - [id number] Implanted:Qty: 1 on 11/29/2022 by Bong Jolly MD at [facility] Vascular Closure Device Right: Femoral [employer] 08/16/2024 [id number] / 0 / [id number] [employer] 1600-445ns Marcia .045in 4in 2 [place] Smooth Wire Fixation - [id number] Implanted:Qty: 4 on 12/06/2019 by Serafin Chacon MD at [facility] [employer] 1600-445NS / / [employer] Treva Wmflxperproc Watchman Flx Procedure Device - [id number] - [id number] Implanted:Qty: 1 on 01/21/2021 by Bong Jolly MD at [facility] [employer] Treav 07/22/2023 FLXPERPRO / [id number] / [employer]iva [employer] Inc 723-563x-12g System 6-12fr Mvp Venous Closure Vascade - [id number] - [id number] Implanted:Qty: 1 on 01/21/2021 by Bong Jolly MD at [facility] N/A: Groin [employer] 11/18/2022 [id number] / [id number] / [id number] Ch[employer] Violetta Clip G4 Nt Cardiac Valve Clip [id number] - S0 - [id number] Implanted:Qty: 1 on 11/29/2022 by Bong Jolly MD at [facility] [employer] 08/26/2023 [id number] / 0 / [id number] Explanted Type Area Apricot Washer Device Identifier Shelf Expiration Date Model / Serial / Lot [employer] 1600-445ns Marcia .045in 4in 2 [place] Smooth Wire Fixation - [id number] Explanted:Qty: 1 on 12/06/2019 at [facility] [employer] 1600-445NS / / Insurance AETNA MEDICARE [facility] MEDICARE [facility] MEDICARE Address: [facility] [id number] [place] [phone] [facility] Address: [address] [address] [place] [address] [place] [address] MEDICARE [facility] MEDIC[facility] Address: [address] [place] [address] Advance Directives For more information, please contact: [phone] * Full Code (Latest Code Status on File) Date Activated Date Inactivated Comments 11/29/2022 2:55 PM 11/30/2022 6:21 PM * Full Code Date Activated Date Inactivated Comments 01/21/2021 1:56 PM 01/22/2021 12:01 AM * Full Code Date Activated Date Inactivated Comments 12/02/2019 5:15 AM 12/06/2019 8:53 PM Care Teams X Ray Electronics Wiring Technician Relationship Specialty Start Date End Date Deena Abrenathy MD PCP - General 02/27/07 Serafin Chacon MD [address] [place] [address] Consulting Physician Plastic Surgery 12/06/19 Duglas Valiente MD [address] [place] [address] Referring Physician Neurosurgery 12/06/19 Bong Jolly MD [address] [place] [address] Referring Physician Cardiovascular Disease 12/22/20 Tonny Foley Jr., MD [address] [place] [address] Consulting Physician Cardiovascular Disease 01/11/22
--- OUTSIDE RECORDS SUMMARY | 2025-02-07 20:56 | XMS_ITS | Continuity of Care Document ---
Author Organization [facility] Address [address] [place], [place] [address] Phone Care Team Providers Care Collar Band Creaser Name Role Phone Alaina HAY FACC, FSCAI, Rafiq Unavailable U navailable Alaina HAY FACC, FSCAI, Rafiq Unavailable U navailable Procedures Procedure Date ICD DEVICE INTERROGAT REMOTE PM/ICD REMOTE TECH SERV ICM DEVICE INTERROGAT REMOTE Advance Directives Directive Yes / No Effective Date File Name No Information Encounters Encounter Description Practice Location Reason(s) For Visit Diagnoses Date Provider Providers Copied on Encounter [facility] , [address] [place] [address], [id number], tel:[phone] [facility] [place] [employer] of automatic (implantable) cardiac defibrillator Alaina Gurrolaiq. [address] [place], [place] [address], [place], [id number], [place]. tel:[phone] Referring Provider: Tonny Foley [facility] [place], [address] . tel:[phone] sulting Provider: Tonyn Foley [facility] [place], [address] . tel:[phone] [facility] , [address] [place] [address], [id number] [place] [address] tel:[phone] [facility] [place] [employer] of automatic (implantable) cardiac defibrillator Ramadaakin Gurrolaiq. [address] [place], [place] [address], [place], [id number], . tel:[phone] Referring Provider: Tonny Foley, [address], [place], [address] . tel:[phone] sulting Provider: Tonny Foley, [address], [place], [address] . tel:[phone] Family History Family Member Type Diagnosis Age At Onset No Information Payers Payer name Insurance type Covered libertarian ID Authoriza tion(s) AETNA MEDICARE ESA PPO [id number] Social History Type Description Quantity Date Captured [...]
--- OUTSIDE RECORDS SUMMARY | 2025-02-07 20:56 | XMS_ITS | Referral Summary ---
Author Organization [facility] al Address [address] [place] [address] Care Team Providers Care High School Sports Coach Name Role Phone Deena Abernathy MD Primary Care Provider [phone] Serafin Chacon MD Unavailable Duglas Valiente MD Unavailable [phone] Bong Jolly MD Unavailable Alaina Godinez MD, Tonny P. Unavailable [phone] Allergies Active Allergy Reactions Criticality Noted Date [...] hours as needed for anxiety Active vit C,M-Ce-peooa-lutei n-zeaxan 250-90-40-1 mg capsule Take by mouth [...] (12/03/2019): Added automatically from request for surgery [id number] Chronic venous hypertension (idiopathic) without complications of [...] often do you attend chur ch or congregational services? More than 4 times per year 11/30/2022 Do you belong to any clubs o r organizations such as islam groups, unions, fraternal or athletic groups, or [...] care, and heating? Not very hard 11/30/2022 [facility] [place] [facility] Occupat ional Health - Occupational Stress [...] on file Legal Sex Female 12:27 AM [employer] Gender Identity Not on file Sexual Orientation Not on file Last Filed Vital Signs Vital Sign Reading Time Taken Comments Blood Pressure 127/78 06/26/2024 3:22 PM [employer] Pulse 71 06/26/2024 3:22 PM [employer] Temperature 36.6 C (97.8 F) 06/26/2024 3:22 PM [employer] Respiratory Rate 20 06/26/2024 3:22 PM [employer] Oxygen Saturation 96% 06/26/2024 3:22 PM [employer] Inhaled Oxygen Concentration - - Weight 78.5 kg (173 lb) 06/26/2024 3:22 PM [employer] Height 172.7 cm (5' 7.99) 06/26/2024 3:22 PM CS T Body Mass Index 26.31 06/26/2024 3:22 PM [employer] Plan of Treatment Not on file Medical Devices Implanted Type Area Operational Intelligence Officer Device Identifier Shelf Expiration Date Model / Serial / Lot [employer] Mitraclip G4 Xtw Cardiac Valve Clip [id number] - S0 - [id number] Implanted:Qty: 1 on 11/29/2022 by Bong Jolly MD at [facility] Clip [employer] 08/07/2023 [id number] / 0 / [id number] [employer] Mitraclip Implant G4 System [id number] - S0 - [id number] Implanted:Qty: 1 on 11/29/2022 by Bong Jolly MD at [facility] Clip [employer] 05/16/2023 [id number] / 0 / [id number] [employer] Device Clsr Perclose Prostyle Sut-Mediatd Closure-Repair Sys 01002-45 - S0 - [id number] Implanted:Qty: 1 on 11/29/2022 by Bong Jolly MD at [facility] Vascular Closure Device Right: Femoral [employer] 08/16/2024 [id number] / 0 / [id number] [employer] Device Clsr Perclose Prostyle Sut-Mediatd Closure-Repair Sys 45319-88 - S0 - [id number] Implanted:Qty: 1 on 11/29/2022 by Bong Jolly MD at [facility] Vascular Closure Device Right: Femoral [employer] 08/16/2024 [id number] / 0 / [id number] [employer] 1600-445ns Marcia .045in 4in 2 [place] Smooth Wire Fixation - [id number] Implanted:Qty: 4 on 12/06/2019 by Serafin Chacon MD at [facility] [employer] [id number] / / [place] [employer] Treva Wmflxperproc Watchman Flx Procedure Device - [id number] - [id number] Implanted:Qty: 1 on 01/21/2021 by Bong Jolly MD at [facility] [place] [employer] 07/22/2023 [id number] / [id number] / [employer] [id number] System 6-12fr Mvp Venous Closure Vascade - [id number] - [id number] Implanted:Qty: 1 on 01/21/2021 by Bong Jolly MD at [facility] N/A: Groin [employer] 11/18/2022 [id number] / [id number] / [id number] [employer] Violetta Clip G4 Nt Cardiac Valve Clip [id number] - S0 - [id number] Implanted:Qty: 1 on 11/29/2022 by Bong Jolly MD at [facility] [employer] 08/26/2023 [id number] / 0 / [id number] Explanted Type Area Operational Intelligence Officer Device Identifier Shelf Expiration Date Model / Serial / Lot [employer] 1600-445ns Marcia .045in 4in 2 [place] Smooth Wire Fixation - [id number] Explanted:Qty: 1 on 12/06/2019 at [facility] [employer] [id number] / / Insurance AETNA MEDICARE [facility] MEDICARE [facility] MEDICARE ADVANTAGE AETNA MEDICARE Advance Directives For more information, please contact: [phone] * Full Code (Latest Code Status on File) Date Activated Date Inactivated Comments 11/29/2022 2:55 PM 11/30/2022 6:21 PM * Full Code Date Activated Date Inactivated Comments 01/21/2021 1:56 PM 01/22/2021 12:01 AM * Full Code Date Activated Date Inactivated Comments 12/02/2019 5:15 AM 12/06/2019 8:53 PM Care Teams High School Sports Coach Relationship Specialty Start Date End Date Deena Abernathy MD PCP - General 02/27/07 Serafin Chacon MD [address] [place] [address] Consulting Physician Plastic Surgery 12/06/19 Duglsa Valiente MD [address] [place] [address] Referring Physician Neurosurgery 12/06/19 Bong Jolly MD [address] [place] [address] Referring Physician Cardiovascular Disease 12/22/20 Tonny Foley Jr., MD [address] [place] [address] Consulting Physician Cardiovascular Disease 01/11/22
--- NOTE | 2025-02-07 22:18 | ED_ITS ---
HPI - Fall General Chief Complaint: Fall Stated Complaint: fall Time Seen by Provider: 02/07/25 20:26 Source: patient and family Mode of arrival: EMS Limitations: no limitations History of Present Illness HPI Narrative: Patient presents after sustaining a fall. 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 Patient states she went to sit down and slipped out of the chair. As she fell she hit her head and heard a crack. She was concerned because she thought she might have a skull fracture since this is what had occurred in 2019. She denies loss of consciousness. She takes 81 mg aspirin daily. Patient denies taking any medications for pain prior to arrival but she also denies any current pain. Patient states that she has a bit of a tremor, believe she might have Parkinson's based on her research of symptoms but Confirm she has a primary care physician. Repeats several times that she is 84 years old and has had a good life. Very knowledgeable about her health/healthy history as well as her medications and the timing of these. Walks without an assist device. History of spinal fusion surgery after which she states she never had neck pain again. Related Data Home Medications ?Medication ?Instructions ?Recorded ?Confirmed ?Last Taken ?Type latanoprost 0.005 % eye drops drp 07/05/21 12/25/24 Unknown History timolol maleate 0.5 % eye drops drp 07/05/21 12/25/24 Unknown History Allergies Allergy/AdvReac Type Severity Reaction Status Date / Time morphine Allergy Unknown Vomiting Verified 02/07/25 17:28 [facility] Past Medical History Medical History History of skull fracture 2019 Macular degeneration DNR (do not resuscitate) Pharyngitis Prediabetes Presence of Watchman left atrial appendage closure device Encounter for immunization Renal angiomyolipoma H/O ventricular tachycardia Mitral valve insufficiency Sleep apnea, obstructive Paroxysmal atrial fibrillation Surgical History Surgical History (Updated 02/09/25 @ 08:54 by Rhianna Enciso MD) H/O Spinal surgery History of cholecystectomy History of appendectomy History of partial hysterectomy AICD (automatic cardioverter/defibrillator) present Family History Family History Father Hypertension Family history of diabetes mellitus in first degree relative Family history of coronary artery disease Mother Family history of coronary artery disease, Onset Age: 68 Patient's mother is , Onset Age: 68 Other Family history of blood dyscrasia Family history of cardiovascular disease Social History Social History (Updated 02/07/25 @ 22:45 by Rhianna Enciso MD) Social History: Smoking status: Never smoker Second hand tobacco smoke exposure: No Alcohol intake: never Substance use: never Substance use type: does not use Lack of Transportation: No Lack of Food: Never True Current Housing: I Have Housing Concerned About Future Housing: No Difficulty Paying Gas/Electric Bills: No Difficulty Paying for Meds: No Currently Unemployed: No Education: High School Diploma/GED Difficulty w/ Childcare or Family Care: No Living arrangements: with family Occupation/Education: retired Additional occupation/education comments: Worked for [employer] [place] Gender identity (if verbalized by the patient): Female Sexual Orientation (if Verbalized by the Patient): Straight or Heterosexual Spiritual care concerns: No (Presbyterian) Agree to blood products: Yes Exam Narrative: GENERAL: Well-appearing, well-nourished, and in no acute distress. HEAD: Normocephalic. 2 areas of small hematoma with overlying ecchymosis, left occiput and posterior. EYES: Non injected, non icteric ENT: Nares clear, no rhinorrhea or epistaxis. Gross auditory acuity intact. NECK: Supple. No meningismus. CHEST: Speaking in full sentences. No respiratory distress. HEART: Regular rate and rhythm. . ABDOMEN: Soft, nondistended. EXTREMITIES: Normal range of motion. No lower extremity edema. SKIN: Warm, dry. No lacerations/abrasions on scalp, skin intact. NEURO: No focal deficits. Alert and oriented. Answering questions. Following commands. Normal speech without aphasia or dysarthria. PSYCH: Normal mood and affect. Course Vital Signs Vital signs: Vital Signs Temperature 98.4 F 02/07/25 17:18 Pulse Rate 75 02/07/25 17:18 Respiratory Rate 17 02/07/25 17:18 Blood Pressure 152/80 H 02/07/25 17:18 Pulse Oximetry 96 02/07/25 17:18 Oxygen Delivery Room Air 02/07/25 17:18 Temperature 98.4 F 02/07/25 17:18 Pulse Rate 73 02/07/25 23:27 Respiratory Rate 19 02/07/25 23:27 Blood Pressure 153/90 H 02/07/25 23:27 Pulse Oximetry 98 02/07/25 23:27 Oxygen Delivery Room Air 02/07/25 17:18 MDM - Fall MDM Narrative Medical decision making narrative: Exceedingly pleasant 84-year-old female presents after a fall in which she struck her head. In the emergency department she is afebrile with vital signs notable for hypertension. Discussed patient's CT findings including meningioma. She has a PCP and notes will follow up with them. Patient does not want to pursue a broader workup including labs or urine. Family was with her is in agreement. Otherwise stable for discharge back to senior care facility. Discharged with prescriptions for fgkq-pni-khjfqvo analgesics medications. Differential Diagnosis Differential diagnosis: Likely other (C-spine fracture/dislocation; intracranial hemorrhage; skull fracture; ) Imaging Data Radiologist's impression: IMPRESSION: 1. Aging brain. No fracture or acute intracranial process. 2. A couple small partially calcified extra-axial mass overlying the left frontal and left frontoparietal regions consistent with small meningiomas. IMPRESSION: 1. Severe cervical spondylosis with anterior and posterior fusion at C2-C4. No acute osseous abnormality. 2. No maxillofacial fractures. Discharge Plan Discharge Clinical Impression: Fall, Meningioma, cerebral, Blunt head trauma, Spondylosis of cervical spine, Traumatic ecchymosis of head Patient Disposition: [place] Assisted/Asst Living Condition: Stable Instructions: Antibiotic Form, Fall Prevention for Older Adults (ED), Head Injury (ED), Meningioma (ED), Ecchymosis (ED) Additional Instructions: Acetaminophen/Tylenol (maximum 4000 mg per day) is safe to take with NSAIDs (ibuprofen/Motrin) for pain relief. Follow-up with your primary care physician. Return to the emergency department any new or worsening symptoms Patient Language: Armenian Prescriptions: New ibuprofen 600 mg tablet 600 mg PO TID PRN (Reason: pain) Qty: 30 0RF acetaminophen 500 mg capsule 1,000 mg PO Q6H PRN (Reason: pain) Qty: 30 0RF No Action latanoprost 0.005 % drops timolol maleate 0.5 % drops amiodarone 200 mg tablet 200 mg PO DAILY Qty: 30 0RF lorazepam 0.5 mg tablet 0.5 mg PO BID PRN (Reason: anxiety) Qty: 60 0RF aspirin [Adult Low Dose Aspirin] 81 mg tablet,delayed release (DR/EC) 81 mg PO DAILY Qty: 90 3RF PreserVision AREDS 2 Plus MV 200 mcg-15 mcg- 5 mg-1 mg capsule See Rx Instructions .ROUTE .COMPLEX Qty: 30 11RF Dose Instruction: TAKE ONE CAPSULE BY MOUTH DAILY Rx Instructions: TAKE ONE CAPSULE BY MOUTH DAILY calcium carbonate-vitamin D3 [Caltrate with Vitamin D3] 600 mg-20 mcg (800 unit) tablet 1 tablet PO DAILY Qty: 90 3RF Rexulti 0.5 mg tablet 0.5 mg PO DAILY Qty: 30 2RF Follow-up/Referrals: Deena Abernathy MD [Primary Care Provider] - Stand Alone Forms: Penitentiary Discharge Time of Disposition: 22:54
[2025-02-07] MEDS: ACETAMINOPHEN 500 MG TABLET 1000 MG PO (23:16)
[2025-02-07 23:24] VITALS: BP 153/90; PULSE 73; RESP 19; O2SAT 98
[2025-02-07 23:27] VITALS: BP 153/90; PULSE 73; RESP 19; O2SAT 98
== END 2025-02-07 23:29 ==
PROVIDERS: Emergency Provider Student in an Organized Health Care Education/Training Program; PCP Family Medicine
DX: S00.03XA Contusion of scalp, initial encounter (principal); D32.0 Benign neoplasm of cerebral meninges; M47.812 Spondylosis without myelopathy or radiculopathy, cervical region; I48.0 Paroxysmal atrial fibrillation; I34.0 Nonrheumatic mitral (valve) insufficiency; R73.03 Prediabetes; H35.30 Unspecified macular degeneration; G47.33 Obstructive sleep apnea (adult) (pediatric); Z66 Do not resuscitate; Z98.1 Arthrodesis status; Z79.82 Long term (current) use of aspirin; Z90.49 Acquired absence of other specified parts of digestive tract; Z90.711 Acquired absence of uterus with remaining cervical stump; Z95.810 Presence of automatic (implantable) cardiac defibrillator; W07.XXXA Fall from chair, initial encounter; Z79.899 Other long term (current) drug therapy
CPT/HCPCS: 70450; 70486; 72125; 99284; A9270; L0140